=== PATIENT | male | born 1990 | race Caucasian/White ===

== ENCOUNTER 2022-11-12 18:43 | Emergency (ER) | payer MEDICAID | END 2022-11-12 18:59 | disposition left against medical advice (07) | LOC: ER 18:48 | DX: R42 Dizziness and giddiness (principal); R11.10 Vomiting, unspecified ==

== ENCOUNTER 2022-11-12 20:12 | Emergency (ER) | payer MEDICAID ==
[~2022-11-12] VITALS: Ht 170 cm; Wt 104.0 kg
[2022-11-12 20:22] VITALS: BP 145/114
[2022-11-12 20:43] LABS: BASOPHILS # (AUTO) 0.1 10^3/uL (0.0-0.1); BASOPHILS % (AUTO) 1 % (0-10); EOSINOPHILS # (AUTO) 0.2 10^3/uL (0.0-0.3); EOSINOPHILS % (AUTO) 3 % (0-10); HEMATOCRIT 49 % (40-54); LYMPHOCYTES # (AUTO) 3.5 10^3/uL (1.0-4.0); LYMPHOCYTES % (AUTO) 49 % (12-44); MEAN CORPUSCULAR HEMOGLOBIN 31 pg (25-34); MEAN CORPUSCULAR HGB CONC 35 g/dL (32-36); MEAN CORPUSCULAR VOLUME 90 fL (80-99); MEAN PLATELET VOLUME 11.1 fL (9.0-12.2); MONOCYTES # (AUTO) 0.8 10^3/uL (0.0-1.0); MONOCYTES % (AUTO) 11 % (0-12); NEUTROPHILS # (AUTO) 2.6 10^3/uL (1.8-7.8); NEUTROPHILS % (AUTO) 37 % (42-75); PLATELET COUNT 162 10^3/uL (130-400); WHITE BLOOD COUNT 7.1 10^3/uL (4.3-11.0)
[2022-11-12] MEDS ORDERED: LACTATED RINGERS 1,000 ML 1,000 ML IV STA (21:05)
--- NOTE | 2022-11-12 21:05 | ED General ---
General Chief Complaint: General Problems/Pain Stated Complaint: DIZZY/SHAKY/VOMITING/DIARRHEA Nursing Triage Note: PT TO ED W/ C/O FLU LIKE SYMPTOMS ONSET X14 DAYS, WORSE OVER LAST 4 DAYS. PT DENIES SEEING PCP FOR C/O. STATES RECENTLY MOVED HERE FROM [place]. NO OTHER C/O VOICED Source of Information: Patient, Other (FEMALE S.O.) History of Present Illness Date Seen by Provider: Nov 12, 2022 Time Seen by Provider: 20:24 Initial Comments PT ARRIVES VIA POV FROM HOME WITH FEMALE S.O. WHO DOES MOST OF TALKING FOR PT PT CAME TO ER EARLIER THIS EVENING, THEN LEFT FROM THE WAITING ROOM WITHOUT BEING SEEN SHORTLY AFTER ARRIVAL PT WITH A MULTITUDE OF COMPLAINTS, ALL ONGOING FOR THE LAST 2 WEEKS SYMPTOMS NO DIFFERENT TODAY HAS NOT SOUGHT CARE UNTIL TONIGHT ( SUNDAY NIGHT) C/O DIZZINESS--"CAN'T WALK" DUE TO DIZZINESS, BUT PT ABLE TO WALK INTO ER ON HIS OWN WITHOUT DIFFICULTY C/O SHAKINESS C/O NAUSEA/VOMITING/DIARRHEA--UNABLE TO STATE HOW MANY TIMES HE HAS VOMITED OR HAD DIARRHEA TODAY C/O COUGH AND CONGESTION C/O SHORTNESS OF BREATH PT DRINKS HEAVILY EVERY DAY--1 PINT TO A FIFTH OF WHISKEY EVERY DAY HAS BEEN DRINKING ALOT MORE THE LAST 2 WEEKS HE SMOKES 1 PPD OF CIGARETTES HE SMOKES MARIJUANA DAILY, STATES HE HAS NOT USED IN 2-3 DAYS. NO FEVER NO CHEST PAIN NO ABDOMINAL PAIN PT STATES HE JUST MOVED HERE LESS THAN A MONTH AGO --FIRST [facility], [facility]TOLD RN HE JUST MOVED HERE FROM [place]. PT WITH MULTIPLE PSYCH DIAGNOSES INCLUDING MOOD DISORDER, ANGER ISSUES, DEPRESSION/ANXIETY WELL HTN. HE STATES HE HAS TAKEN ALL OF HIS MEDICATIONS TODAY AND KEPT THEM DOWN. PT IS NOT COVID VACCINATED. PCP: [facility] Allergies and Home Medications Allergies Coded Allergies: vancomycin (Verified Allergy, Unknown, 11/12/22) Patient Home Medication List Home Medication List Reviewed: Yes Review of Systems Review of Systems Constitutional: see HPI Respiratory: see HPI Cardiovascular: no symptoms reported Gastrointestinal: see HPI Genitourinary: no symptoms reported Musculoskeletal: see HPI Psychiatric/Neurological: See HPI Past Zlanglk-Vhsdim-Nfzisl Hx Patient Social History Tobacco Use?: Yes Tobacco type used: Cigarettes Smoking Status: Current Everyday Smoker Use of E-Cig and/or Vaping dev: No Substance use?: Yes Substance type: Marijuana Additional substance use comme: LAST USED X2 DAYS AGO Substance frequency: Daily Alcohol Use?: Yes Alcohol type: Hard Liquor Alcohol Frequency: Daily Pt feels they are or have been: No Past Medical History Surgery/Hospitalization HX: OSTEOMYELITIS ANXIETY ANGER ISSUES HTN Surgeries: Yes (ANKLE SURGERY FOR OSTEOMYELITIS) Orthopedic Respiratory: No Cardiac: Yes Hypertension Neurological: No Genitourinary: No Gastrointestinal: No Musculoskeletal: Yes (OSTEOMYELITIS OF [place]LE) Endocrine: No HEENT: No Cancer: No Psychosocial: Yes (ANGER ISSUES, MOOD DISORDER. SUBSTANCE ABUSE) Anxiety, Bipolar, Personality Disorder, Depression Physical Exam Vital Signs Vital Signs - First Documented 11/12/22 20:22 Temp 36.4 Pulse 95 Resp 20 B/P (MAP) 145/114 (124) Pulse Ox 95 O2 Delivery Room Air Capillary Refill : Height, Weight, BMI Height: '" Weight: lbs. oz. 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 Norm as Tested Skin: Normal Color, Warm/Dry Progress/Results/Core Measures Suspected Sepsis SIRS Temperature: Pulse: 95 Respiratory Rate: 20 Laboratory Tests 11/12/22 20:36: White Blood Count 7.1 Blood Pressure 145 /114 Mean: 124 Laboratory Tests 11/12/22 20:36: Creatinine 1.47H, Platelet Count 162, Total Bilirubin 0.7 Results/Orders Lab Results Laboratory Tests Test 11/12/22 20:25 11/12/22 20:36 Range/Units Influenza Type A (RT-PCR) Not Detected Not Detecte Influenza Type B (RT-PCR) Not Detected Not Detecte SARS-CoV-2 RNA (RT-PCR) Not Detected Not Detecte White Blood Count 7.1 4.3-11.0 10^3/uL Red Blood Count 5.41 4.30-5.52 10^6/uL Hemoglobin 17.0 13.3-17.7 g/dL Hematocrit 49 40-54 % Mean Corpuscular Volume 90 80-99 fL Mean Corpuscular Hemoglobin 31 25-34 pg Mean Corpuscular Hemoglobin Concent 35 32-36 g/dL Red Cell Distribution Width 12.2 10.0-14.5 % Platelet Count 162 130-400 10^3/uL Mean Platelet Volume 11.1 9.0-12.2 fL Immature Granulocyte % (Auto) 0 % Neutrophils (%) (Auto) 37 L 42-75 % Lymphocytes (%) (Auto) 49 H 12-44 % Monocytes (%) (Auto) 11 0-12 % Eosinophils (%) (Auto) 3 0-10 % Basophils (%) (Auto) 1 0-10 % Neutrophils # (Auto) 2.6 1.8-7.8 10^3/uL Lymphocytes # (Auto) 3.5 1.0-4.0 10^3/uL Monocytes # (Auto) 0.8 0.0-1.0 10^3/uL Eosinophils # (Auto) 0.2 0.0-0.3 10^3/uL Basophils # (Auto) 0.1 0.0-0.1 10^3/uL Immature Granulocyte # (Auto) 0.0 0.0-0.1 10^3/uL Sodium Level 141 135-145 MMOL/L Potassium Level 3.5 L 3.6-5.0 MMOL/L Chloride Level 107 98-107 MMOL/L Carbon Dioxide Level 21 21-32 MMOL/L Anion Gap 13 5-14 MMOL/L Blood Urea Nitrogen 8 7-18 MG/DL Creatinine 1.47 H 0.60-1.30 MG/DL Estimat Glomerular Filtration Rate 65 BUN/Creatinine Ratio 5 Glucose Level 106 H 70-105 MG/DL Calcium Level 9.4 8.5-10.1 MG/DL Corrected Calcium 8.5-10.1 MG/DL Magnesium Level 2.2 1.6-2.4 MG/DL Total Bilirubin 0.7 0.1-1.0 MG/DL Aspartate Amino Transf (AST/SGOT) 133 H 5-34 U/L Alanine Aminotransferase (ALT/SGPT) 63 H 0-55 U/L Alkaline Phosphatase 87 40-136 U/L Total Protein 8.5 H 6.4-8.2 GM/DL Albumin 4.8 H 3.2-4.5 GM/DL Amylase Level 57 25-125 U/L Lipase 148 H 8-78 U/L Serum Alcohol 344 *H <10 MG/DL My Orders Orders - NIXON GOMEZ DO Ed Iv/Invasive Line Start (11/12/22 20:24) Monitor-Rhythm Ecg Trace Only (11/12/22 20:24) Cbc With Automated Diff (11/12/22 20:24) Comprehensive Metabolic Panel (11/12/22 20:24) Covid 19 Inhouse Test (11/12/22 20:24) Influenza A And B By Pcr (11/12/22 20:24) Alcohol (11/12/22 20:24) Amylase (11/12/22 20:24) Lipase (11/12/22 20:24) Magnesium (11/12/22 20:24) Ondansetron Injection (Ondansetron Inj (11/12/22 21:15) Lactated Ringers 1,000 Ml (Lactated Ring (11/12/22 21:05) Ed Iv/Invasive Line Start (11/12/22 21:05) Ed Iv/Invasive Line Start (11/12/22 21:17) Lactated Ringers 1,000 Ml (Lactated Ring (11/12/22 21:30) Medications Given in ED Current Medications Medications Dose Ordered Sig/Jose Alberto Route Start Time Stop Time Status Last Admin Dose Admin Lactated Ringer's 1,000 ml @ 0 mls/hr Q0M ONCE IV 11/12/22 21:30 11/12/22 21:31 DC 11/12/22 21:38 0 MLS/HR Ondansetron HCl 4 mg ONCE ONCE IVP 11/12/22 21:15 11/12/22 21:16 DC 11/12/22 21:15 4 MG Vital Signs/I&O 11/12/22 20:22 Temp 36.4 Pulse 95 Resp 20 B/P (MAP) 145/114 (124) Pulse Ox 95 O2 Delivery Room Air Capillary Refill : Blood Pressure Mean: 124 Progress Note : Progress Note VITALS ON ARRIVAL: TEMP 36.4=97.6, HR 95, RR 20, 145/114, O2 SAT 95% ON ROOM AIR GIVEN: -IV FLUIDS -ZOFRAN LABS: -CBC NORMAL -CMP WITH K 3.5, BUN 8, CR 1.47, GLU 106, AST 133, ALT 63 -AMYLASE 57, LIPASE 148 -MG 2.2 -ETOH 344 -COVID/FLU NEGATIVE PT REFUSES TO ATTEMPT TO GIVE URINE SPECIMEN NO COUGH NO DYSPNEA NO HYPOXIA NO FEVER NO VOMITING OR DIARRHEA DURING ER STAY NO PRIOR VISITS. 2154--PT NOW WANTS TO LEAVE AMA. NOT ALL TEST RESULTS ARE BACK AND PT REFUSES TO GIVE URINE SPECIMEN. PT WOULD NOT WAIT FOR AMA DISCHARGE PAPERS. Departure Impression Primary Impression: Left against medical advice Disposition: 07 AGAINST MEDICAL ADVICE Condition: Against Medical Advice Departure-Patient Inst. Referrals: NO,LOCAL PHYSICIAN (PCP/Family) Primary Care Physician NIXON GOMEZ DO Nov 12, 2022 21:05
[2022-11-12 21:13] LABS: ALBUMIN 4.8 GM/DL (3.2-4.5); BILIRUBIN,TOTAL 0.7 MG/DL (0.1-1.0); BUN/CREATININE RATIO 5; CALCIUM 9.4 MG/DL (8.5-10.1); CARBON DIOXIDE 21 MMOL/L (21-32); CHLORIDE 107 MMOL/L (98-107); CREATININE SERUM 1.47 MG/DL (0.60-1.30); GFR ESTIMATED 65; GLUCOSE 106 MG/DL (70-105); POTASSIUM 3.5 MMOL/L (3.6-5.0); SODIUM 141 MMOL/L (135-145); TOTAL PROTEIN 8.5 GM/DL (6.4-8.2)
[2022-11-12] MEDS ORDERED: ONDANSETRON INJECTION 4 MG/2 ML (SDV) IVP ONE (21:15)
[2022-11-12 21:27] LABS: ALANINE AMINOTRANSFERASE 63 U/L (0-55); ALKALINE PHOSPHATASE 87 U/L (40-136); AMYLASE 57 U/L (25-125); LIPASE 148 U/L (8-78); MAGNESIUM 2.2 MG/DL (1.6-2.4)
[2022-11-12] MEDS ORDERED: LACTATED RINGERS 1,000 ML 1,000 ML IV ONE (21:30)
== END 2022-11-12 22:01 | disposition left against medical advice (07) ==
LOC: EDUNIT# 20:12 → ER 20:14
DX: R42 Dizziness and giddiness (principal); R09.81 Nasal congestion; R06.02 Shortness of breath; R25.8 Other abnormal involuntary movements; F17.210 Nicotine dependence, cigarettes, uncomplicated; Z28.310 Unvaccinated for COVID-19; Z20.822 Contact with and (suspected) exposure to COVID-19
CPT/HCPCS: 80053; 82150; 83690; 83735; 85025; 87636; 93041; 99284; G0480; 36415; 80320